=== PATIENT | female | born 1980 | race Caucasian/White ===

== ENCOUNTER → 2022-03-11 | Outpatient (CLI) | payer BC ==
[~2022-03-11] MED LIST: ATARAX 10MG10 MG/TAB PO; AZELASTIN-FLUTI23 GM NS; CLARITIN10 M1 PO; FLOVENT DI250 MCG/Ac IH; MAGNESIUM PO; MELOXICAM15 MG; PROAIR DIGIHAL90 MCG IH; SERTRALINE50 MG PO; SUDAFED; VENOFER200 MG/10 IV; VITAMIN C; [UNRECOGNIZED DRUG - CODE] IM
[2022-03-11 15:20] LABS: BASO # 0.07 K/mm3 (0.02-0.10); EOS # 0.22 K/mm3 (0.04-0.40); EOS % 1.8 % (1.0-5.0); HEMATOCRIT 39.6 % (37.0-47.0); HEMOGLOBIN 12.2 g/dL (12.5-16.0); LYMPH# 2.62 K/mm3 (1.50-4.00); MEAN CELL VOLUME 74 fl (78-100); MEAN CORPUSCULAR HEMOGLOBIN 23 pg (27-31); MEAN CORPUSCULAR HGB CONC 31 g/dL (33-37); MEAN PLATELET VOLUME 9.6 fl (7.4-10.4); NEU # 8.82 K/mm3 (1.40-6.50); PLATELET COUNT 481 K/mm3 (130-400); RED BLOOD COUNT 5.34 M/mm3 (4.10-5.30); RED CELL DISTRIBUTION WIDTH 16.7 % (11.5-14.5); WHITE BLOOD COUNT 12.6 K/mm3 (4.8-10.8)
[2022-03-11 15:24] LABS: ALBUMIN 4.1 g/dL (3.5-5.0)
[2022-03-11 15:27] LABS: TOTAL PROTEIN 7.7 g/dL (6.4-8.3)
[2022-03-11 15:29] LABS: TOTAL BILIRUBIN 0.6 mg/dL (0.2-1.2)
== END ==
LOC: LAB 14:49
PROVIDERS: Internal Medicine
DX: Z00.00 Encounter for general adult medical examination without abnormal findings (principal); J30.9 Allergic rhinitis, unspecified; J45.40 Moderate persistent asthma, uncomplicated; G25.81 Restless legs syndrome; G47.19 Other hypersomnia; E61.1 Iron deficiency; E78.2 Mixed hyperlipidemia; K90.9 Intestinal malabsorption, unspecified; E66.9 Obesity, unspecified; R73.03 Prediabetes

== ENCOUNTER → 2022-05-06 | Outpatient (CLI) | payer BC | LOC: RAD 09:31 | DX: M79.672 Pain in left foot (principal) ==

== ENCOUNTER → 2022-05-27 | Outpatient (CLI) | payer BC | LOC: LAB 11:20 | DX: K90.9 Intestinal malabsorption, unspecified (principal) ==

== ENCOUNTER → 2022-06-06 | Outpatient (CLI) | payer BC ==
[~2022-06-06] VITALS: Ht 170.2 cm; Wt 127.4 kg
[2022-06-06 12:51] VITALS: BP 130/82
== END ==
LOC: AMSURD 12:36 → EDSTATUS 15:19
DX: E61.1 Iron deficiency (principal)
CPT/HCPCS: J1756

== ENCOUNTER → 2023-05-25 | Outpatient (CLI) | payer BC ==
[~2023-05-25] VITALS: Ht 170.2 cm; Wt 127.4 kg
[~2023-05-25] MED LIST changes: +Iron Sucrose 200 MG in NS 100 ML Over 15 minutes IV ONE
[2023-05-25 10:13] VITALS: BP 133/87
== END ==
LOC: AMSURD 09:44
DX: E61.1 Iron deficiency (principal)
CPT/HCPCS: J1756

== ENCOUNTER → 2023-11-17 | Outpatient (CLI) | payer BC ==
[~2023-11-17] MED LIST changes: -Iron Sucrose 200 MG in NS 100 ML Over 15 minutes IV ONE
[2023-11-17 09:10] LABS: ALBUMIN 4.2 g/dL (3.5-5.0)
[2023-11-17 09:12] LABS: CALCIUM 10.2 mg/dL (8.3-10.5)
[2023-11-17 09:13] LABS: BASO # 0.03 K/mm3 (0.02-0.10); EOS # 0.27 K/mm3 (0.04-0.40); EOS % 2.5 % (1.0-5.0); HEMATOCRIT 44.2 % (37.0-47.0); LYMPH# 2.16 K/mm3 (1.50-4.00); MEAN CELL VOLUME 77 fl (78-100); MEAN CORPUSCULAR HEMOGLOBIN 25 pg (27-31); MEAN CORPUSCULAR HGB CONC 32 g/dL (33-37); MEAN PLATELET VOLUME 9.2 fl (7.4-10.4); MONO # 0.72 K/mm3 (0.20-0.80); NEU # 7.43 K/mm3 (1.40-6.50); PLATELET COUNT 466 K/mm3 (130-400); RED BLOOD COUNT 5.71 M/mm3 (4.10-5.30); RED CELL DISTRIBUTION WIDTH 15.9 % (11.5-14.5); TOTAL PROTEIN 7.9 g/dL (6.4-8.3); WHITE BLOOD COUNT 10.7 K/mm3 (4.8-10.8)
[2023-11-17 09:15] LABS: TOTAL BILIRUBIN 0.6 mg/dL (0.2-1.2)
[2023-11-17 09:19] LABS: MAGNESIUM 1.87 mg/dL (1.60-2.60)
== END ==
LOC: LAB 08:44
PROVIDERS: Internal Medicine
DX: J45.40 Moderate persistent asthma, uncomplicated (principal); K90.9 Intestinal malabsorption, unspecified

== ENCOUNTER → 2023-12-28 | Outpatient (CLI) | payer BC ==
[~2023-12-28] VITALS: Ht 170.2 cm; Wt 127.4 kg
[~2023-12-28] MED LIST changes: +Iron Sucrose 20 MG/ML 5 ML VIAL IV ONE; +K2 PLUS D3 TAB1 EACH PO; +METFORMIN HYD1000 MG PO; +MIRENA52 MG IU; +NS 100 ML IV ONE; +PHENTERMINE15 MG PO
[2023-12-28 16:16] VITALS: BP 132/93
[2023-12-28 17:05] VITALS: BP 139/86
== END ==
LOC: AMSURD 16:01
DX: E61.1 Iron deficiency (principal)
CPT/HCPCS: J1756

== ENCOUNTER → 2024-02-18 | Outpatient (CLI) | payer BC ==
[~2024-02-18] MED LIST changes: -Iron Sucrose 20 MG/ML 5 ML VIAL IV ONE; -NS 100 ML IV ONE
[2024-02-18 14:40] LABS: BASO # 0.06 K/mm3 (0.02-0.10); EOS # 0.28 K/mm3 (0.04-0.40); EOS % 2.2 % (1.0-5.0); HEMATOCRIT 43.7 % (37.0-47.0); HEMOGLOBIN 13.8 g/dL (12.5-16.0); LYMPH# 2.55 K/mm3 (1.50-4.00); MEAN CELL VOLUME 81 fl (78-100); MEAN CORPUSCULAR HEMOGLOBIN 26 pg (27-31); MEAN CORPUSCULAR HGB CONC 32 g/dL (33-37); MEAN PLATELET VOLUME 9.4 fl (7.4-10.4); MONO # 0.92 K/mm3 (0.20-0.80); NEU # 8.73 K/mm3 (1.40-6.50); PLATELET COUNT 412 K/mm3 (130-400); RED BLOOD COUNT 5.39 M/mm3 (4.10-5.30); RED CELL DISTRIBUTION WIDTH 15.7 % (11.5-14.5); WHITE BLOOD COUNT 12.6 K/mm3 (4.8-10.8)
== END ==
LOC: LAB 14:28
PROVIDERS: Internal Medicine
DX: E61.1 Iron deficiency (principal)

== ENCOUNTER → 2024-04-19 | Outpatient (CLI) | payer BC ==
[2024-04-19 10:51] LABS: BASO # 0.07 K/mm3 (0.02-0.10); EOS # 0.15 K/mm3 (0.04-0.40); EOS % 1.4 % (1.0-5.0); HEMATOCRIT 47.2 % (37.0-47.0); HEMOGLOBIN 15.1 g/dL (12.5-16.0); LYMPH# 1.91 K/mm3 (1.50-4.00); MEAN CELL VOLUME 82 fl (78-100); MEAN CORPUSCULAR HEMOGLOBIN 26 pg (27-31); MEAN CORPUSCULAR HGB CONC 32 g/dL (33-37); MEAN PLATELET VOLUME 9.3 fl (7.4-10.4); MONO # 0.56 K/mm3 (0.20-0.80); NEU # 7.66 K/mm3 (1.40-6.50); PLATELET COUNT 446 K/mm3 (130-400); RED BLOOD COUNT 5.77 M/mm3 (4.10-5.30); RED CELL DISTRIBUTION WIDTH 14.8 % (11.5-14.5); WHITE BLOOD COUNT 10.4 K/mm3 (4.8-10.8)
[2024-04-19 10:55] LABS: ALBUMIN 4.4 g/dL (3.5-5.0)
[2024-04-19 10:56] LABS: CALCIUM 10.5 mg/dL (8.3-10.5)
[2024-04-19 10:58] LABS: TOTAL PROTEIN 8.6 g/dL (6.4-8.3)
[2024-04-19 10:59] LABS: TOTAL BILIRUBIN 0.8 mg/dL (0.2-1.2)
[2024-04-19 11:05] LABS: MAGNESIUM 1.98 mg/dL (1.60-2.60)
== END ==
LOC: LAB 10:26
PROVIDERS: Internal Medicine
DX: Z00.00 Encounter for general adult medical examination without abnormal findings (principal); E78.2 Mixed hyperlipidemia; K90.9 Intestinal malabsorption, unspecified; F32.1 Major depressive disorder, single episode, moderate

== ENCOUNTER → 2024-05-03 | Outpatient (CLI) | payer BC | LOC: CARDREHAB 08:09 | DX: G47.19 Other hypersomnia (principal) | CPT/HCPCS: G0399 ==